=== PATIENT | female | born 1975 | race Caucasian/White ===

== ENCOUNTER → 2021-01-25 | Outpatient (CLI) | payer BC | LOC: RAD 08:24 | DX: S83.511A Sprain of anterior cruciate ligament of right knee, initial encounter (principal); M22.41 Chondromalacia patellae, right knee; Z98.890 Other specified postprocedural states ==

== ENCOUNTER 2021-03-11 10:55 | Outpatient (RCR) | payer BC | END 2021-03-25 17:00 | disposition home or self-care (01) | LOC: PT 10:55 | DX: Z98.890 Other specified postprocedural states (principal) ==

== ENCOUNTER 2021-04-26 10:04 | Outpatient (RCR) | payer BC | END 2021-07-25 | disposition home or self-care (01) | LOC: PT | DX: S83.511D Sprain of anterior cruciate ligament of right knee, subsequent encounter (principal) ==

== ENCOUNTER 2021-07-26 15:30 | Outpatient (RCR) | payer BC | END 2021-09-16 | disposition home or self-care (01) | LOC: PT 15:30 | DX: S83.511D Sprain of anterior cruciate ligament of right knee, subsequent encounter (principal) ==

== ENCOUNTER 2021-09-29 15:38 | Outpatient (RCR) | payer BC | END 2021-10-17 | disposition home or self-care (01) | LOC: PT | DX: S83.511D Sprain of anterior cruciate ligament of right knee, subsequent encounter (principal); S83.31XD Tear of articular cartilage of right knee, current, subsequent encounter ==

== ENCOUNTER → 2022-03-01 | Outpatient (CLI) | payer BC | LOC: MAMMO 09:15 | DX: Z12.31 Encounter for screening mammogram for malignant neoplasm of breast (principal) ==

== ENCOUNTER → 2023-07-10 | Outpatient (CLI) | payer BC | LOC: MAMMO 16:00 | DX: Z12.31 Encounter for screening mammogram for malignant neoplasm of breast (principal) ==